=== PATIENT | female | born 1955 | race Caucasian/White ===

== ENCOUNTER → 2020-12-28 | Outpatient (CLI) | payer MEDICAID ==
[~2020-12-28] VITALS: Ht 167.6 cm; Wt 77.1 kg
[~2020-12-28] MED LIST: ACETAMINOPHEN325 M1 OR; ADULT LOW DOSE81 MG PO; ASPIRIN EC81 M1 PO; CARVEDILOL3.125 MG PO; COUMADIN 2 MG TA2 M1 PO; CRESTOR40 MG PO; FERREX-150 PLU150 MG PO; FUROSEMIDE 40 M40 M1 PO; INHALER; K-DUR 20 MEQ T20 MEQ PO; KEFLEX500 M1 PO; LEVOTHROID100 MC1 PO; LISINOPRIL2.5 MG PO; NIASPAN 500 MG500 M1 PO; NORCO 5-325 TA1 EACH PO; PACERONE 200 M200 M1 PO; PREDNISONE 20 M20 MG PO; SIMVASTATIN40 MG PO; SPIRIVA INH; [UNRECOGNIZED DRUG - OTHER]
[2020-12-28 09:39] VITALS: BP 146/65
[2020-12-28 09:58] LABS: HEMATOCRIT 43.4 % (37.0-47.0); HEMOGLOBIN 14.1 gm/dL (12.0-15.0); MCH 28.3 pg (26.0-34.0); MCHC 32.5 g/dL (28.0-37.0); MCV 87.1 fL (80.0-100.0); MPV 7.7 fl. (7.2-11.1); RBC 4.98 mil/uL (4.20-5.00); RDW-CV 14.4 % (10.5-14.5)
[2020-12-28 10:03] LABS: CALCIUM 9.2 mg/dL (8.5-10.1); CREATININE 0.9 mg/dL (0.6-1.3); POTASSIUM 4.5 mmol/L (3.5-5.1)
[2020-12-28 10:08] LABS: TOTAL BILIRUBIN 0.3 mg/dL (<0.1-1.0); TOTAL PROTEIN 7.8 g/dL (6.4-8.2)
[2020-12-28 10:56] LABS: URINE BILIRUBIN NEGATIVE (Negative); URINE BLOOD NEGATIVE (Negative); URINE CLARITY CLEAR; URINE COLOR YELLOW; URINE GLUCOSE-RANDOM NEGATIVE (Negative); URINE KETONES NEGATIVE (Negative); URINE LEUKOCYTES NEGATIVE (Negative); URINE NITRITE NEGATIVE (Negative); URINE PROTEIN NEGATIVE (Negative); URINE SPECIFIC GRAVITY 1.015 (1.005-1.030); URINE UROBILINOGEN 0.2 E.U./dl (0.2-1.0)
[2020-12-28 11:34] VITALS: BP 124/58
[2020-12-28 11:50] VITALS: BP 124/55
[2020-12-28 12:05] VITALS: BP 126/34
[2020-12-28 12:20] VITALS: BP 135/58
--- NOTE | 2020-12-28 13:16 | EKG ---
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: : 1955 Requested By: Benny Hadley Order Number: [id number] Sadiq MD: Rick Lopez Measurements Intervals [place] Rate: 49 P: 8 ID: 174 QRS: -15 QRSD: 165 T: -31 QT: 494 QTc: 447 Interpretive Statements Sinus bradycardia Right bundle branch block Probable left ventricular hypertrophy No previous ECG available for comparison Electronically Signed On 12-28-2020 13:16:35 CDT by Rick Lopez [email or web address] <ELECTRONICALLY SIGNED> By: Rick Lopez MD, [facility] 12/28/20 1316 1146 1146 Rick Lopez MD, [facility] /EPI
--- NOTE | 2021-01-25 10:51 | CARD ---
[address] [address] CARDIAC CATH REPORT Name: DARION BARLOW Room: [facility]#: [id number] Admission: 12/28/20 Attend Phys: Benny Hadley MD Discharge: Date of : 59 Report #: [id number] THIS REPORT FOR: cc: Elaina Jon Christine L. DO Liston, Michael J. MD [facility] ~ ADDENDUM APPROVED REPORT Study performed: 12/28/2020 10:04:17 Patient Status: Out-Patient Room #: Event Personnel: Benny Hadley [employer], Alexsandra Mclean RN RN, Hesham Rodriguez Monitor, Augusta Bess RTR Scrub Exam: Generator Change for a Single Chamber ICD at elective replacement Indications: ICD generator at elective replacement The patient is a 65 year-old female with a history of Cardiomyopathy. Intraoperative Conscious Sedation Sedation start time: 10:53 Case end Time: 11:11 Fentanyl 50 mcg Versed 2 mg Implanted Devices: Medtronic Generator- Primo MRI VR SureScan - SN: [id number] Procedure After explaining the risks, benefits, and alternative options, informed consent was obtained from the patient. The patient was brought to the cardiac catheterization lab and the left chest and shoulder were prepped and draped in the usual fashion. During this case, Fluoroscopy and no contrast were used for imaging. IV conscious sedation was used throughout procedure with appropriate monitoring and was performed in the presence of a registered nurse who was an independent trained observer other than the physician performing the procedure. Lidocane with epinephrine was used as a topical anticeptic for the left chest area. Original pocket was opened and the old device was removed. New device was connected to previously inserted leads. Sensing and capture were tested. [place] [address] CARDIAC CATH REPORT Name: SARAHDARION PALUMBO ALEYDA Room: [facility]#: [id number] Admission: 12/28/20 Attend Phys: Benny Hadley MD Discharge: Date of : 59 Report #: [id number] antibiotic. New device was inserted into pocket. The subcutaneous layer was sutured using 2.0 vicryl. The skin was sutured with 4.0 vicryl. The site was then dressed in the following fashion, Benzoin spray, steri strips, and stratabsorb. Complications The patient tolerated the procedure well and there were no complications associated with the procedure. Findings Specimens Removed: No Estimated Blood Loss: 5 ML Atrial lead impedance 380 ohms. RV lead impedance 608 ohms. Atrial lead capture threshold 0.375 V at 0.40 ms. Ventricular lead capture threshold 0.625 V at 0.40 ms. Conclusion 1. ICD generator at elective replacement. 2. Successful ICD generator replacement. Recommendations 1. Follow-up site check in 1 week. 2. Follow-up device interrogation 1 to 2 months. <ELECTRONICALLY SIGNED> By: Benny Hadley MD, FACC 01/25/21 1050 49 1050Miccon Hadley MD, FAC /INF
== END | disposition home or self-care (01) ==
LOC: M.CL 09:12
PROVIDERS: ATTEND Internal Medicine Cardiovascular Disease
DX: Z45.02 Encounter for adjustment and management of automatic implantable cardiac defibrillator (principal); I42.9 Cardiomyopathy, unspecified; Z20.822 Contact with and (suspected) exposure to COVID-19; Z98.890 Other specified postprocedural states; Z79.899 Other long term (current) drug therapy

== ENCOUNTER → 2021-05-02 | Outpatient (CLI) | payer MEDICAID ==
[2021-05-02 08:57] LABS: ALBUMIN 4.2 g/dL (3.4-5.0); ALKALINE PHOSPHATASE 116 U/L (46-116); CHOLESTEROL 174 mg/dL (<200); DIRECT BILIRUBIN 0.1 mg/dL (<0.1-0.3); HDL CHOLESTEROL 59 mg/dL (>40); LDL CHOLESTEROL 88 mg/dL (<100); SGOT 25 U/L (15-37); SGPT 34 U/L (30-65); TC:HDL 2.9 Ratio (Not establshd); TOTAL BILIRUBIN 0.5 mg/dL (<0.1-1.0); TOTAL PROTEIN 8.5 g/dL (6.4-8.2); TRIGLYCERIDE 137 mg/dL (<150); VLDL 27 mg/dL (<40)
[2021-05-02 08:59] LABS: SERUM ASSESSMENT Clear
--- NOTE | 2021-05-02 10:04 | 2DMMODE ---
[place] [address] 2 D/M-MODE ECHOCARDIOGRAM Name: DARION BRALOW Room: [facility]#: [id number] Admission: 05/02/21 Attend Phys: Rick Lopez MD Discharge: Date of : 59 Date of Service: 05/02/21 1003 Report #: [id number] THIS REPORT FOR: cc: Elaina Jon Christine L. DO Holkins,Fernando Peñaloza MD [facility] ~ APPROVED REPORT Study performed: 05/02/2021 09:16:47 EXAM: Comprehensive 2D, Doppler, and color-flow Echocardiogram Patient Location: Out-Patient BSA: 1.85 HR: 55 bpm Other Information Study Quality: Good Indications Ischemic cardiomyopathy 2D Dimensions IVSd: 11.22 (7-11mm) LVOT Diam: 20.94 (18-24mm) LVDd: 59.12 mm PWd: 10.37 (7-11mm) Ascending Ao: 31.99 (22-36mm) LVDs: 37.02 (25-40mm) Aortic Root: 33.44 mm Volumes Left Atrial Volume (Systole) LA ESV Index: 17.50 mL/m2 Aortic Valve AoV Peak Fabian.: 1.45 m/s AO Peak Gr.: 8.46 mmHg LVOT Max P.90 mmHg AO Mean Gr.: 4.45 mmHg LVOT Mean P.90 mmHg LVOT Max V: 0.69 m/s AO V2 VTI: 32.24 cm LVOT Mean V: 0.43 m/s FORD (VTI): 1.73 cm2 LVOT V1 VTI: 16.17 cm Mitral Valve E/A Ratio: 2.61 [place] [address] 2 D/M-MODE ECHOCARDIOGRAM Name: CAINDARION F Room: [facility]#: [id number] Admission: 05/02/21 Attend Phys: Rick Lopez MD Discharge: Date of : 59 Date of Service: 05/02/21 1003 Report #: [id number] MV Decel. Time: 288.00 ms MV E Max Fabian.: 1.46 m/s MV PHT: 83.52 ms MVA (PHT): 2.63 cm2 TDI E/Lateral E': 16.22 E/Medial E': 18.25 Medial E' Fabian.: 0.08 m/s Lateral E' Fabian.: 0.09 m/s Pulmonary Valve PV Peak Fabian.: 0.91 m/s PV Peak Gr.: 3.34 mmHg Left Ventricle The left ventricle is normal size. There is a segmental wall motion abnormality with inferrobasilar akinesis. There is normal left ventricular wall thickness. Left ventricular systolic function is mildly decreased. LVEF is 45-50%. The left ventricular diastolic function is normal. Right Ventricle The right ventricle is normal size. The right ventricular systolic function is normal. Pacemaker lead is present in the right ventricle. Atria The left atrium size is normal. Pacemaker lead is present in the right atrium. Aortic Valve Mild aortic valve sclerosis. No aortic regurgitation is present. There is no aortic valvular stenosis. Mitral Valve Moderate mitral annular calcification. Annuloplasty ring is noted in the mitral position. Mild mitral regurgitation. No evidence of mitral valve stenosis. Tricuspid Valve The tricuspid valve is normal in structure. There is no tricuspid valve regurgitation noted. Pulmonic Valve The pulmonary valve is normal in structure. Mild pulmonic regurgitation[place] [address] 2 D/M-MODE ECHOCARDIOGRAM Name: DARION BARLOW Room: [facility]#: [id number] Admission: 05/02/21 Attend Phys: Rick Lopez MD Discharge: Date of : 59 Date of Service: 05/02/21 1003 Report #: [id number] The aortic root is normal in size. IVC is normal in size and collapses >50% with inspiration. Pericardium There is no pericardial effusion. <Conclusion> The left ventricle is normal size. There is normal left ventricular wall thickness. Left ventricular systolic function is mildly decreased. LVEF is 45-50%. The left ventricular diastolic function is normal. The right ventricle is normal size. The left atrium size is normal. Mild aortic valve sclerosis. No aortic regurgitation is present. There is no aortic valvular stenosis. Moderate mitral annular calcification. Mild mitral regurgitation. No evidence of mitral valve stenosis. The tricuspid valve is normal in structure. IVC is normal in size and collapses >50% with inspiration. There is no pericardial effusion. There is a segmental wall motion abnormality with inferrobasilar akinesis. Pacemaker lead is present in the right ventricle. Annuloplasty ring is noted in the mitral position. <ELECTRONICALLY SIGNED> By: Fernando Caceres MD, FACC 05/02/21 1003 1003 1003 Fernando Caceres MD, FACC /INF
== END ==
LOC: M.CRD 07:42
PROVIDERS: ATTEND Internal Medicine Cardiovascular Disease
DX: I08.8 Other rheumatic multiple valve diseases (principal); I25.5 Ischemic cardiomyopathy; E78.00 Pure hypercholesterolemia, unspecified

== ENCOUNTER → 2021-05-10 | Outpatient (CLI) | payer MEDICAID ==
[~2021-05-10] VITALS: Ht 167.6 cm; Wt 74.8 kg
[~2021-05-10] MED LIST changes: +MOBIC15 MG PO
[2021-05-10 08:53] VITALS: BP 131/71
[2021-05-10 09:12] LABS: CALCIUM 8.6 mg/dL (8.5-10.1); CREATININE 0.7 mg/dL (0.6-1.3); POTASSIUM 4.1 mmol/L (3.5-5.1)
[2021-05-10 11:25] VITALS: BP 113/54
--- NOTE | 2021-05-10 11:33 | CARD ---
[address] [address] CARDIAC CATH REPORT Name: DARION BARLOW Room: [facility]#: [id number] Admission: 05/10/21 Attend Phys: Benny Hadley MD Discharge: Date of : 59 Report #: [id number] THIS REPORT FOR: cc: Elaina Jon Christine L. DO Liston, Michael J. MD [facility] ~ APPROVED REPORT Study performed: 05/10/2021 10:05:07 Patient Status: Out-Patient Room #: Exam: ICD pocket revision Indications: ICD pocket pain The patient is a 65 year-old female with a history of ICD placement for primary prevention. Conscious Sedation Start time: 1025 End Time: 1058 Fentanyl 125.0 mcg Versed 5.0 mg Fluoro time 0.2 min, DAP 1561, 14 mGy Procedure The patient underwent informed consent. We discussed the details of the procedure including the risks, which include, but not limited to bleeding, infection, vascular damage, cardiac perforation, and pneumothorax. She understood these risks and was willing to proceed. As such, she was brought to the EP/Cardiac Catheterization laboratory in a fasting and sedated state and prepped and draped in a sterile fashion, received IV antibiotics prior to initiation of the procedure and a venogram was performed showing patency of the left axillary vein. The patient underwent conscious sedation, with no related complications. The patient was brought to the EP/Cardiac Catheterization laboratory and the left chest and shoulder were prepped and draped in a sterile manner. During this case, Fluoroscopy and no contrast were used for imaging. IV conscious sedation was used throughout procedure with appropriate monitoring and was performed in the presence of a registered nurse who was an independent trained observer other than the physician performing the procedure. The left subclavian region was infiltrated with 2% [place] [address] CARDIAC CATH REPORT Name: DARION BARLOW Room: [facility]#: [id number] Admission: 05/10/21 Attend Phys: Benny Hadley MD Discharge: Date of : 59 Report #: [id number] Epinephrine subcutaneous anesthesia. A transverse incision was made in the left upper chest cavity. There is a left chest was prepped and draped in sterile fashion. Local anesthesia was achieved with 1% lidocaine. Next a device pocket was formed over the left pectoralis muscle using electrocautery and blunt dissection. The existing pocket was then opened and the ICD generator and redundant lead removed. The device was relocated to the new pocket and secured in place using the designated port and 0 silk suture. The old device pocket was then closed utilizing interrupted stitches of 2-0 Vicryl. The pockets were then flushed with antibiotic solution. The incision was then closed using interrupted stitches of 2-0 Vicryl and a single subcuticular stitch of 4-0 Vicryl. Several Steri-Strips were placed across the incision and a sterile Telfa dressing covered with a Tegaderm. Patient tolerated the procedure well without complication. Generator Change The generator change was then secured using 0 silk sutures. The subcutaneous pocket was irrigated with ancef antibiotic solution.The lead was attached to the appropriate receptacle on the new pulse generator and setscrews firmly tightened to insure adequate contact and stability. The lead and pulse generator were placed into the subcutaneous pocket. Sharp and sponge counts were confirmed to be correct. At this time the pocket was closed subcutaneously with a 2.0 Vicryl and the skin was closed with a 4.0 Vicryl. The operative site was dressed in sterile fashion with benzoin and the patient was transferred to the floor in stable condition. Complications The patient tolerated the procedure well and there were no complications associated with the procedure. Findings Specimens Removed: N/A Estimated Blood Loss: minimal Conclusion 1. Pain at existing ICD pocket. 2. Successful relocation [place] [address] CARDIAC CATH REPORT Name: DARION BARLOW Room: [facility]#: [id number] Admission: 05/10/21 Attend Phys: Benny Hadley MD Discharge: Date of : 59 Report #: [id number] Recommendations 1. Follow-up site check in 1 week. <ELECTRONICALLY SIGNED> By: Benny Hadley MD, FACC 05/10/21 113 31 113Michaeglen Hadley MD, FACC /INF
[2021-05-10 11:40] VITALS: BP 108/57
[2021-05-10 11:55] VITALS: BP 120/86
[2021-05-10 12:10] VITALS: BP 122/80
--- NOTE | 2021-05-10 12:28 | EKG ---
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1955 Requested By: Benny Hadley Order Number: [id number] Sadiq MD: Benny Hadley Measurements Intervals [place] Rate: 60 P: 28 MN: 164 QRS: -16 QRSD: 165 T: -28 QT: 474 QTc: 474 Interpretive Statements Sinus rhythm Right bundle branch block Compared to ECG 12/28/2020 11:46:19 Sinus bradycardia no longer present Electronically Signed On 05-10-2021 12:27:32 [employer] by Benny Hadley [email or web address] <ELECTRONICALLY SIGNED> By: Benny Hadley MD, [facility] 05/10/21 1227 3 Benny Hadley MD, [facility] /EPI
[2021-05-10 12:40] VITALS: BP 118/78
--- NOTE | 2021-05-11 10:21 | CARD ---
[address] [address] CARDIAC CATH REPORT Name: DARION BARLOW Room: [facility]#: [id number] Admission: 05/10/21 Attend Phys: Benny Hadley MD Discharge: Date of : 59 Report #: [id number] THIS REPORT FOR: cc: Elaina oJn Christine L. DO Liston, Michael J. MD [facility] ~ DATE OF SERVICE: 05/10/2021 CARDIAC PROCEDURE PROCEDURE: ICD pocket revision. PROCEDURE INDICATION: The patient's current ICD site is causing the patient significant pain. DESCRIPTION OF PROCEDURE: After informed consent was obtained, the patient was brought to cardiac catheterization lab. The area of the left chest was prepped and draped in sterile fashion. Local anesthesia was achieved with 1% lidocaine. Next, after an initial incision was made, an alternate ICD pocket was formed medial to the existing ICD device pocket. After a new pocket was formed, the ICD was removed from its primary pocket and relocated to the new pocket. The device was secured using the designated port and 0 silk suture. The old device pocket was then closed with 2 stitches of 2-0 Vicryl. The incision was then closed using interrupted stitches of 2-0 Vicryl. The skin was then closed using a single subcuticular stitch of 4-0 Vicryl. Several Steri-Strips were placed across the incision. A sterile Telfa dressing was then covered with a Tegaderm. The patient tolerated the procedure well without complication. IMPRESSION: 1. Implantable cardioverter-defibrillator device pocket with significant pain and discomfort. 2. Successful relocation of implantable cardioverter-defibrillator device pocket. RECOMMENDATION: Follow up site check in 1 week. <ELECTRONICALLY SIGNED> By: Benny Hadley MD, FACC 05/11/21 1021 1017 1740Miccon Hadley MD, FACC /nt
== END | disposition home or self-care (01) ==
LOC: M.CL 08:32
PROVIDERS: ATTEND Internal Medicine Cardiovascular Disease
DX: T82.847A Pain due to cardiac prosthetic devices, implants and grafts, initial encounter (principal); T82.128A Displacement of other cardiac electronic device, initial encounter; Z98.890 Other specified postprocedural states; Z79.899 Other long term (current) drug therapy; Z87.891 Personal history of nicotine dependence; Z95.1 Presence of aortocoronary bypass graft; Z88.2 Allergy status to sulfonamides; Z88.8 Allergy status to other drugs, medicaments and biological substances; Y83.8 Other surgical procedures as the cause of abnormal reaction of the patient, or of later complication, without mention of misadventure at the time of the procedure